=== PATIENT | male | born 1930 | race Caucasian/White ===

== ENCOUNTER 2018-07-08 07:52 | Emergency (ER) | payer OTHER ==
--- NOTE | 2018-07-08 08:12 | ED.PDOC ---
History of Present Illness - General Chief Complaint: Trauma Stated Complaint: s/p fall Time Seen by Provider: 07/08/18 08:07 Source: patient, family Exam Limitations: physical impairment - Dementia - History of Present Illness Initial Comments: patient comes in today after fall. He states he was walking downstairs and just slipped and fell. He had no chest pain, shortness of breath or dizziness. He is not very stable on his feet and he states he just wasn't strong enough to grab himself when he started to slip. Patient did have a fall yesterday per his daughter and he is fallen about a week ago as well. Patient denies any loss of consciousness, vision change, or emesis. He has a little bit of pain on his telephone that he thinks is chronic and also on his head where he has a bump from landing today. Patient does have some dementia allergies able to pleasantly conversant with us he could not give his true medical history until his daughter came to help him. Patient is on Eloquis and has a history of pulmonary embolus. He has a history of diabetes and hypertension. Patient also recently had a perforated bowel approximately 2 months ago. At that time he decided to move here to be closer to his daughter. Patient is and lives with his at home. Occurred: just prior to arrival Severity: mild Pain Location: head, other - "tailbone" Method of Injury: fall Improving Factors: nothing Worsening Factors: nothing Loss of Consciousness: no loss of consciousness Associated Symptoms (Fall): denies symptoms Allergies/Adverse Reactions: Allergies Penicillins Allergy (Verified 07/08/18 08:05) Home Medications: Ambulatory Orders Apixaban [Eliquis] 5 mg PO BID 07/08/18 Atorvastatin Calcium [Lipitor] 10 mg PO BEDTIME 07/08/18 Docusate Sodium [Colace Cap] 100 mg PO BID 07/08/18 Donepezil Hydrochloride [Aricept] 10 mg PO BEDTIME 07/08/18 Levofloxacin [Levaquin] 750 mg PO KIM-OTH-DAY 07/08/18 Megestrol Acetate 10 ml PO DAILY 07/08/18 Metformin HCl 500 mg PO DAILY 07/08/18 Pantoprazole Sodium 40 mg PO DAILY 07/08/18 Review of Systems - Review of Systems Constitutional: States: no symptoms reported. Denies: chills, fever, weakness EENTM: States: no symptoms reported. Denies: eye pain, blurred vision, ear discharge, nose congestion Respiratory: States: no symptoms reported. Denies: cough, short of breath Cardiology: States: no symptoms reported. Denies: chest pain, palpitations Gastrointestinal/Abdominal: States: no symptoms reported. Denies: abdominal pain, diarrhea, nausea, vomiting Genitourinary: States: no symptoms reported Musculoskeletal: States: see HPI Neurological: States: no symptoms reported. Denies: headache, numbness, paresthesia Past Medical History (General) - Patient Medical History Hx Stroke: No Hx Dementia: Yes Hx Cardiac Disorders: Yes - Atrial fib Hx Congestive Heart Failure: No Hx Hypertension: Yes Hx Diabetes: Yes Hx Gastroesophageal Reflux: Yes Surgical History: appendectomy - Vaccination History Hx Influenza Vaccination: Yes - 06/16/18 Hx Pneumococcal Vaccination: Yes - Social History Hx Tobacco Use: No - Activities of Daily Living [facility]Assisted Living (if applicable):: [facility] Family Medical History - Family History Father Family History: Unknown Living Status: Physical Exam - Physical Exam General Appearance: Alert, Frail, No apparent distress Head Injury: other - 4 cm ecchymosis and hematoma on the right parietal area of his head no Acosta sign, or other ecchymosis. 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 Departure - Departure Clinical Impression: Hematoma of occipital surface of head Qualifiers: Encounter type: initial encounter Qualified Code(s): S00.83XA - Contusion of other part of head, initial encounter Disposition: Discharge to Home or Self Care Condition: Good Departure Forms: ED Discharge - Pt. Copy, Patient Portal Self Enrollment Instructions: DI for Trauma Diet: regular diet Home Medications: Ambulatory Orders Apixaban [Eliquis] 5 mg PO BID 07/08/18 Atorvastatin Calcium [Lipitor] 10 mg PO BEDTIME 07/08/18 Docusate Sodium [Colace Cap] 100 mg PO BID 07/08/18 Donepezil Hydrochloride [Aricept] 10 mg PO BEDTIME 07/08/18 Levofloxacin [Levaquin] 750 mg PO KIM-OTH-DAY 07/08/18 Megestrol Acetate 10 ml PO DAILY 07/08/18 Metformin HCl 500 mg PO DAILY 07/08/18 Pantoprazole Sodium 40 mg PO DAILY 07/08/18 Additional Instructions: Return to ER for vision change, altered LOC, or emesis. Follow up with PCP in 3 -4 days to discuss repeated falls
[2018-07-08 08:32] VITALS: TEMP 96.7
--- NOTE | 2018-07-08 09:01 | RAD ---
PROCEDURE: Sacrum Coccyx Clinical History: fall pain to coccyx Indication: Same as above Comparison: None . Technique: Three views of the sacrum and coccyx were done. Findings: The sacrococcygeal joint is unremarkable. There is no diastases of the bilateral sacroiliac joints or the pubic symphysis. There is no evidence of acute fractures involving the sacrum or the coccyx. Note is made of degenerative changes in the evaluated lower lumbar spine, most pronounced at L5/S1 level. There is no visualization of any radiopaque foreign bodies in the soft tissues. Impression: Negative for acute bony trauma involving the sacrum or the coccyx Electronically signed by: Crow Henry MD 07/08/2018 9:00 AM CDT Workstation: [id number]
--- NOTE | 2018-07-08 09:03 | CT ---
PROCEDURE: Head HISTORY: fall on blood thinner Indication: Same as above Comparison: None Technique: CT of the head was done without intravenous contrast was done in the orthogonal planes. This exam was performed according to our departmental dose-optimization program, which includes automated exposure control, adjustment of the mA and/or KV according to the patient's size and/or use of iterative reconstruction technique. FINDINGS: There is no intracranial hemorrhage, midline shift mass effect or acute focal infarct. There is prominence of the sylvian fissures and the cortical sulci reflecting age related volume loss. There is periventricular and deep white matter low attenuation, most likely related to small vessel white matter ischemic disease. A tiny old lacunar infarct is seen in the right basal ganglia Intracranial atherosclerotic vascular wall calcifications are seen. If clinical concern exists regarding an acute ischemic/vascular pathology being responsible for patient's symptomatology, an MRI of the brain is more sensitive than the current study, in ruling out such a possibility. There is good morris/white matter differentiation. The ventricular system is normal. The mastoid air cells are unremarkable . The paranasal sinuses are unremarkable . There is no visualization of acute fractures involving the calvarium or the skull base. IMPRESSION: There is no acute intracranial abnormality. Age related and chronic involutional changes are seen. Electronically signed by: Crow Henry MD 07/08/2018 9:02 AM CDT Workstation: [id number]
[2018-07-08 09:06] VITALS: BP 114/76; O2SAT 98
== END 2018-07-08 09:47 ==
LOC: ER 07:52
DX: S00.83XA Contusion of other part of head, initial encounter (principal); F03.90 Unspecified dementia, unspecified severity, without behavioral disturbance, psychotic disturbance, mood disturbance, and anxiety; M54.5 Low back pain; E11.9 Type 2 diabetes mellitus without complications; I48.91 Unspecified atrial fibrillation; I10 Essential (primary) hypertension; K21.9 Gastro-esophageal reflux disease without esophagitis; W10.9XXA Fall (on) (from) unspecified stairs and steps, initial encounter; Z79.01 Long term (current) use of anticoagulants; Z79.899 Other long term (current) drug therapy; Z86.711 Personal history of pulmonary embolism; Z88.0 Allergy status to penicillin; Y92.129 Unspecified place in nursing home as the place of occurrence of the external cause

== ENCOUNTER 2018-12-02 21:30 | Emergency (ER) | payer OTHER ==
[2018-12-02 21:52] VITALS: BP 153/85; TEMP 98.5; O2SAT 95
--- NOTE | 2018-12-02 21:54 | ED.PDOC ---
History of Present Illness - General Chief Complaint: Skin/Abrasion/Tear Stated Complaint: abrasion/laceration to top right mouth Time Seen by Provider: 12/02/18 21:50 Source: patient, family, EMS Exam Limitations: clinical condition - Has Alzheimers Dementia - History of Present Illness Initial Comments: Jonny Garcia 88 y/o male [place] home resident at [facility] brought by EMS with gum laceration after a fall yesterday stated patient landed on his chin.Denies LOC,remembers falling,no blurry vision.Family stated that he had been eating solid foods since incident w/o complaining of pain on chewing.Denies any other injuries from incident NO headache , neck,chest,back or hip or leg pains from incident Occurred: yesterday Severity: moderate Pain Location: mouth Method of Injury: fall Improving Factors: nothing Worsening Factors: nothing Loss of Consciousness: no loss of consciousness Associated Symptoms (Fall): other - mouth pain Allergies/Adverse Reactions: Allergies Penicillins Allergy (Verified 12/02/18 21:52) Home Medications: Ambulatory Orders Apixaban [Eliquis] 5 mg PO BID 07/08/18 Atorvastatin Calcium [Lipitor] 10 mg PO BEDTIME 07/08/18 Docusate Sodium [Colace Cap] 100 mg PO BID 07/08/18 Donepezil Hydrochloride [Aricept] 10 mg PO BEDTIME 07/08/18 Levofloxacin [Levaquin] 750 mg PO KIM-OTH-DAY 07/08/18 Megestrol Acetate 10 ml PO DAILY 07/08/18 Metformin HCl 500 mg PO DAILY 07/08/18 Pantoprazole Sodium 40 mg PO DAILY 07/08/18 Clindamycin HCl 150 mg PO TID 7 Days #21 cap 12/02/18 Review of Systems - Review of Systems EENTM: States: see HPI, mouth pain Unable to Obtain Due To: dementia Past Medical History (General) - Patient Medical History Hx Stroke: No Hx Dementia: Yes Hx Cardiac Disorders: Yes - Atrial fib Hx Congestive Heart Failure: No Hx Hypertension: Yes Hx Diabetes: Yes Hx Gastroesophageal Reflux: Yes Surgical History: other - both knees - Vaccination History Hx Influenza Vaccination: Yes - 06/16/18 Hx Pneumococcal Vaccination: Yes - Social History Hx Tobacco Use: No Family Medical History - Family History Father Family History: Unknown Living Status: Physical Exam - Physical Exam General Appearance: Alert, Comfortable, No apparent distress Head Injury: no evidence of injury Eye Exam: bilateral normal ENT Exam: hearing grossly normal, other - non bleeding gum laceration upper portion right side Neck Exam: full range of motion, normal alignment, normal inspection Cardiovascular/Respiratory: normal peripheral pulses, no JVD, normal breath sounds, irregularly irregular Gastrointestinal/Abdominal: normal bowel sounds, non tender, soft Back Exam: no vertebral tenderness Extremity Exam: non-tender, no pedal edema Skin Exam: normal color, warm/dry - Mary Coma Score Best Eye Response ([place]): (4) open spontaneously Best Verbal Response ([place]): (5) oriented - to person,place-has Alzheimers Dementia Best Motor Response ([place]): (6) obeys commands Mary Total: 15 Progress - Progress Progress: 12/02/18 22:00 Vital Signs - 8 hr 12/02/18 21:30 Temperature 98.5 F Pulse Rate [ 68 monitor] Respiratory 16 Rate Blood Pressure 153/85 [Left Arm] O2 Sat by Pulse 95 Oximetry Departure - Departure Clinical Impression: Laceration of upper gingiva without complication Qualifiers: Encounter type: initial encounter Qualified Code(s): S01.512A - Laceration without foreign body of oral cavity, initial encounter Time of Disposition: 22:03 Disposition: Discharge to SNF Condition: Fair Departure Forms: ED Discharge - Pt. Copy, Patient Portal Self Enrollment Diet: other - SOFT DIET FOR ONE WEEK Referrals: LASHAE FARLEY [Primary Care Provider] - 1-2 Weeks Prescriptions: Clindamycin HCl 150 mg PO TID 7 Days #21 cap Home Medications: Ambulatory Orders Apixaban [Eliquis] 5 mg PO BID 07/08/18 Atorvastatin Calcium [Lipitor] 10 mg PO BEDTIME 07/08/18 Docusate Sodium [Colace Cap] 100 mg PO BID 07/08/18 Donepezil Hydrochloride [Aricept] 10 mg PO BEDTIME 07/08/18 Levofloxacin [Levaquin] 750 mg PO KIM-OTH-DAY 07/08/18 Megestrol Acetate 10 ml PO DAILY 07/08/18 Metformin HCl 500 mg PO DAILY 07/08/18 Pantoprazole Sodium 40 mg PO DAILY 07/08/18 Clindamycin HCl 150 mg PO TID 7 Days #21 cap 12/02/18 Additional Instructions: Continue with all home medications;No DENTURES FOR 2 WEEKS;Return to ER as needed
[2018-12-02] MEDS: CLINDAMYCIN HCL CAP 150 MG CAP PO ONE (22:04)
== END 2018-12-02 22:14 ==
LOC: ER 21:30
DX: S01.512A Laceration without foreign body of oral cavity, initial encounter (principal); F03.90 Unspecified dementia, unspecified severity, without behavioral disturbance, psychotic disturbance, mood disturbance, and anxiety; I48.91 Unspecified atrial fibrillation; I10 Essential (primary) hypertension; E11.9 Type 2 diabetes mellitus without complications; Z79.899 Other long term (current) drug therapy; Z79.84 Long term (current) use of oral hypoglycemic drugs; Z88.0 Allergy status to penicillin; W19.XXXA Unspecified fall, initial encounter; Y92.9 Unspecified place or not applicable

== ENCOUNTER 2020-07-03 16:00 | Observation (INO) | payer MEDICARE, OTHER ==
--- NOTE | 2020-07-03 16:12 | ED.PDOC ---
History of Present Illness - General Time Seen by Provider: 07/03/20 16:07 Source: patient, RN notes reviewed, Vital Signs reviewed, [facility] records, old records Exam Limitations: other - dementia - History of Present Illness Initial Comments: 89 yo M comes in from [facility] with cough, congestion. Tested positive covid. patient denies any chest pain, shortness of breath or fever. Patient hx of dementia. Allergies/Adverse Reactions: Allergies Penicillins Allergy (Verified 12/02/18 21:52) Home Medications: Ambulatory Orders Apixaban [Eliquis] 5 mg PO BID 07/08/18 Atorvastatin Calcium [Lipitor] 10 mg PO BEDTIME 07/08/18 Docusate Sodium [Colace Cap] 100 mg PO BID 07/08/18 Donepezil Hydrochloride [Aricept] 10 mg PO BEDTIME 07/08/18 Levofloxacin [Levaquin] 750 mg PO KIM-OTH-DAY 07/08/18 Megestrol Acetate 10 ml PO DAILY 07/08/18 Metformin HCl [Metformin Hydrochloride] 500 mg PO DAILY 07/08/18 Pantoprazole Sodium 40 mg PO DAILY 07/08/18 Clindamycin HCl 150 mg PO TID 7 Days #21 cap 12/02/18 Review of Systems - Review of Systems Constitutional: Denies: fever, malaise EENTM: Denies: throat pain Respiratory: States: cough. Denies: short of breath Cardiology: Denies: chest pain, palpitations Gastrointestinal/Abdominal: Denies: abdominal pain, diarrhea, nausea, vomiting Musculoskeletal: Denies: muscle pain Skin: Denies: rash Unable to Obtain Due To: dementia Past Medical History (General) - Patient Medical History Hx Seizures: No Hx Stroke: No Hx Dementia: Yes Hx Asthma: No Hx of COPD: No Hx Cardiac Disorders: Yes - Atrial fib Hx Congestive Heart Failure: No Hx Pacemaker: No Hx Hypertension: Yes Hx Thyroid Disease: No Hx Diabetes: Yes Hx Gastroesophageal Reflux: Yes Hx Renal Disease: No Hx Cancer: No Hx of HIV: No Hx Hepatitis C: No Hx MRSA: No - Vaccination History Hx Tetanus, Diphtheria Vaccination: - unknown Hx Influenza Vaccination: Yes - 06/16/18 Hx Pneumococcal Vaccination: Yes - Social History Hx Tobacco Use: No Family Medical History - Family History Father Family History: Unknown Living Status: Physical Exam - Physical Exam General Appearance: Alert, Comfortable, No apparent distress, Well Developed, Well Groomed, Well Hydrated, Well Nourished Eye Exam: bilateral normal ENT Exam: normal ENT inspection, hearing grossly normal, TMs normal Neck: non-tender, full range of motion, supple, normal inspection, trachea midline Respiratory: chest non-tender, lungs clear, normal breath sounds, no respiratory distress, no accessory muscle use, other - cough Cardiovascular/Chest: normal peripheral pulses, regular rate, rhythm, no edema, no gallop, no JVD, no murmur Gastrointestinal/Abdominal: normal bowel sounds, non tender, soft, no organomegaly, no pulsatile mass Extremity: normal range of motion, non-tender, normal inspection, no pedal edema, no calf tenderness, normal capillary refill 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 per hospitalist request for covid admission. COVID test was not adequate, and so it was repeated. 07/03/20 21:27 Patient sundowning. Given 5 mg PO haldol x 2. Patient transferred to the floor instable condition. 07/03/20 21:28 - Results/Orders Results/Orders: 07/03/20 16:07 Isolation:Airborne ONCE 07/03/20 16:15 Pulse Ox, Continuous Monitoring STAT 07/03/20 17:20 RESPIRATORY PANEL 2 Stat 07/04/20 16:15 Pulse Ox, Continuous Monitoring STAT 07/05/20 16:15 Pulse Ox, Continuous Monitoring STAT Laboratory Results WBC 8.6 K/mm3 (4.8-10.8) 07/03/20 16:25 RBC 5.37 M/mm3 (4.70-6.10) 07/03/20 16:25 Hgb 15.5 gm/dL (14.0-18.0) 07/03/20 16:25 Hct 45.9 % (42.0-52.0) 07/03/20 16:25 MCV 85.4 fl (80.0-94.0) 07/03/20 16:25 MCH 28.9 pg (27.0-31.0) 07/03/20 16:25 MCHC 33.8 g/dL (33.0-37.0) 07/03/20 16:25 RDW 14.3 % (11.5-14.5) 07/03/20 16:25 Plt Count 203 K/mm3 (130-400) 07/03/20 16:25 MPV 8.7 fl (7.40-10.4) 07/03/20 16:25 Absolute Neuts (auto) 3.10 K/uL (1.8-6.8) 07/03/20 16:25 Absolute Lymphs (auto) 4.10 K/uL (1.0-3.4) H 07/03/20 16:25 Absolute Monos (auto) 1.10 K/uL (0.2-0.8) H 07/03/20 16:25 Absolute Eos (auto) 0.20 K/uL (0.0-0.4) 07/03/20 16:25 Absolute Basos (auto) 0.10 K/uL (0.0-0.1) 07/03/20 16:25 Neutrophils % 35.7 % (42.0-78.0) L 07/03/20 16:25 Lymphocytes % 47.9 % (20.0-50.0) 07/03/20 16:25 Monocytes % 13.3 % (2.0-9.0) H 07/03/20 16:25 Eosinophils % 2.1 % (1.0-5.0) 07/03/20 16:25 Basophils % 1.0 % (0.0-2.0) 07/03/20 16:25 PTT (SP) 32.2 SECONDS (21.8-31.6) H 07/03/20 16:25 D-Dimer, Quantitative < 131.0 ng/ml (131-400) L 07/03/20 16:25 Sodium 136 mmol/L (135-145) 07/03/20 16:25 Potassium 3.7 mmol/L (3.6-5.0) 07/03/20 16:25 Chloride 98 mmol/L (101-111) L 07/03/20 16:25 Carbon Dioxide 25 mmol/L (21-31) 07/03/20 16:25 Anion Gap 16.7 (12-18) 07/03/20 16:25 BUN 25 mg/dL (7-18) H 07/03/20 16:25 Creatinine 1.28 mg/dL (0.6-1.3) 07/03/20 16:25 BUN/Creatinine Ratio 19.5 (10-20) 07/03/20 16:25 Random Glucose 170 mg/dL (70-105) H 07/03/20 16:25 Serum Osmolality 280.3 mOsm/L (275-295) 07/03/20 16:25 Calcium 8.2 mg/dL (8.4-10.2) L 07/03/20 16:25 Magnesium 2.0 mg/dL (1.8-2.5) 07/03/20 16:25 Total Bilirubin 0.6 mg/dL (0.2-1.0) 07/03/20 16:25 AST 27 IU/L (10-42) 07/03/20 16:25 ALT 17 IU/L (10-60) 07/03/20 16:25 Alkaline Phosphatase 81 IU/L (42-121) 07/03/20 16:25 LD Total 126 IU/L (91-180) 07/03/20 16:25 Creatine Kinase 91 IU/L (38-174) 07/03/20 16:25 Troponin I < 0.02 ng/mL (0.01-0.05) 07/03/20 16:25 C-Reactive Protein 1.4 mg/dL (0-1.0) H 07/03/20 16:25 B-Natriuretic Peptide 22.8 pg/ml (0-100) 07/03/20 16:25 Serum Total Protein 7.0 gm/dL (6.4-8.2) 07/03/20 16:25 Albumin 4.2 g/dl (3.2-5.5) 07/03/20 16:25 Globulin 2.8 gm/dL (2.3-3.5) 07/03/20 16:25 Albumin/Globulin Ratio 1.5 (1.1-1.9) 07/03/20 16:25 - EKG/XRAY/CT EKG: Sinus Comments: HR 77, QRS 112, 1st degree AV block, LAF, no acute ischemia. XRAY: chest - no acute cardiopulmonary pathology Departure - Departure Clinical Impression: COVID-19, Hypoxia, Sundowning Time of Disposition: 17:02 Disposition: Admit Patient Condition: Fair Diet: resume usual diet Home Medications: Ambulatory Orders Apixaban [Eliquis] 5 mg PO BID 07/08/18 Atorvastatin Calcium [Lipitor] 10 mg PO BEDTIME 07/08/18 Docusate Sodium [Colace Cap] 100 mg PO BID 07/08/18 Donepezil Hydrochloride [Aricept] 10 mg PO BEDTIME 07/08/18 Levofloxacin [Levaquin] 750 mg PO KIM-OTH-DAY 07/08/18 Megestrol Acetate 10 ml PO DAILY 07/08/18 Metformin HCl [Metformin Hydrochloride] 500 mg PO DAILY 07/08/18 Pantoprazole Sodium 40 mg PO DAILY 07/08/18 Clindamycin HCl 150 mg PO TID 7 Days #21 cap 12/02/18 Decision To Admit - Decistion To Admit Decision to Admit Date: 07/03/20 Decision to Admit Time: 17:11
--- NOTE | 2020-07-03 16:37 | RAD ---
EXAM DESCRIPTION: Chest,1 View CLINICAL HISTORY: covid COMPARISON: None Available. TECHNIQUE: One view radiograph of the chest FINDINGS: Cardiac silhouette shows normal heart size. Pulmonary vascularity is within normal limits. Lungs show no confluent infiltrates. No pleural effusion. No pneumothorax. No acute osseous abnormality. IMPRESSION: No acute cardiopulmonary process. Electronically signed by: Earl Costa MD 07/03/2020 4:35 PM CDT
[2020-07-03] MEDS ORDERED: DEXAMETHASONE INJ 4 MG/ML VIAL IV ONE (17:37)
--- NOTE | 2020-07-03 19:27 | HP ---
SUPERVISING PHYSICIAN: Prasad Carver MD CHIEF COMPLAINT: Cough, congestion, Covid positive. HISTORY OF PRESENT ILLNESS: Mr. Garcia is an 89 year-old male patient who resides at [facility]. He was sent over from [facility] for evaluation after he tested positive for Covid-19 because he is having a cough and congestion. The patient has a history of dementia and is a very poor historian. At time of admission, there is no actual medical record available to review. Therefore, his history is obtained from the Emergency Room records. His lab showed he had a normal white count at 8,600, coagulation studies show a normal D-dimer of less than 131 and his chemistries reveal normal electrolytes. Creatinine 1.28. C-reactive protein is a little elevated at 1.4, troponin less than 0.02. Liver functions all within normal limits. Microbiology shows Covid was positive. RADIOLOGY: Chest x-ray per radiology interpretation showed no acute cardiopulmonary process. Given his advanced age, he is going to be placed in observation until arrangements can be made for placement, possibly at acute care facility per [facility] as the do not have the capability to take of Covid patients at this time. He was in stable condition at time of being placed in observation. PAST MEDICAL HISTORY: 1. Dementia. 2. Atrial fibrillation on Eliquis. 3. Hypertension. 4. Gastroesophageal reflux disease. 5. Diabetes mellitus type 2. PAST SURGICAL HISTORY: Unknown. CURRENT MEDICATIONS: Awaiting updated list from [facility]. ALLERGIES: Penicillins. FAMILY HISTORY: Unknown. SOCIAL HISTORY: The patient resides at [facility]. No history of tobacco abuse or smoking. REVIEW OF SYSTEMS: Unable to obtain due to patient's dementia. PHYSICAL EXAMINATION: VITAL SIGNS: Temperature 97.7, pulse 66, blood pressure 144/67, respirations 20 to 24, oxygen saturation 94% on 2 liter nasal cannula. GENERAL: The patient looks to be comfortable, well-developed, well-nourished, does not look to be in any distress. HEENT: Tympanic membranes are clear bilaterally. Oropharynx is pink, moist, without any lesions. NECK: Supple, nontender, full range of motion, no jugular venous distention. CHEST: Lung sounds were clear, somewhat diminished towards the bases. He does have a dry cough. No wheezing or rhonchi are noted. CARDIOVASCULAR: Regular rate and rhythm without appreciable murmurs, rubs, or gallops. ABDOMEN: Soft, nontender, positive bowel sounds. EXTREMITIES: Without cyanosis, clubbing, or edema. NEUROLOGIC: Cranial nerves II through XII are grossly intact, no obvious deficits. He is alert and oriented to himself. He understands he is at the hospital and knows that there is currently an election occurring. He does not know his own past medical history. SKIN: Warm, pink and dry. LABORATORY: White count 8,600 with no left shift. Coagulation studies showed normal D-dimer at 131. Chemistries showed normal electrolytes. BUN 25, creatinine 1.28. Liver functions within normal limits. Troponin less than 0.02. C-reactive protein 1.4. Urinalysis pending. MICROBIOLOGY: Respiratory panel is positive for Covid, negative for other targets including bacterial, viral, negative for flu. ASSESSMENT: 1. COVID pneumonitis 2. Dementia. 3. Atrial fibrillation on Eliquis. 4. Hypertension. 5. Gastroesophageal reflux disease. 6. Diabetes mellitus type 2. PLAN: The patient is going to be placed in observation for Covid pneumonitis. Given his advanced age of 89 and underlying history of atrial fibrillation and diabetes, I am going to go ahead and treat him fairly aggressive initially while we follow his labs and per protocol. I am not sure of his disposition obviously due to the fact that his current [facility] at [facility] does not have the capability to take Covid patients and will have to find a facility and will pursue to see if we get the patient transferred. Until then, we will continue to treat fairly aggressive with Remdesivir, Rocephin, azithromycin, Decadron, sliding scale, Align, Protonix and albuterol treatments as needed and follow his labs. I anticipate his length of stay to be at least 1 to 2 days pending his clinical presentation and also disposition. Until we can transition patient back to outpatient management, we will continue to monitor and treat as needed #[id number] [id number]
[2020-07-03] MEDS ORDERED: HALOPERIDOL TAB 1 MG TAB PO ONE ×2 (20:08→20:11)
[2020-07-03] MEDS ORDERED: HALOPERIDOL LACTATE INJ 5 MG/ML VIAL IM ONE (21:04)
[2020-07-03] MEDS ORDERED: SODIUM CHLORIDE 0.9% (FLUSH) 10 ML SYG IV PRN (22:21)
[2020-07-03] MEDS ORDERED: ONDANSETRON INJ 4 MG/2 ML VIAL IV PRN (22:21)
[2020-07-03] MEDS ORDERED: ACETAMINOPHEN 325 MG TAB PO PRN (22:21)
[2020-07-03] MEDS ORDERED: ALBUTEROL INHALER 64 PUFF/8GM INH PRN (22:25)
[2020-07-03] MEDS ORDERED: AZITHROMYCIN IV 500 MG in SODIUM CHLORIDE 0.9% 250ML 250 ML IVPB SCH (22:30)
[2020-07-03] MEDS ORDERED: cefTRIAXone SODIUM 1 GM in SODIUM CHL 0.9% 50ML MIN-BAG+ 50 ML IVPB SCH (22:30)
[2020-07-03] MEDS ORDERED: IV SET AND CAP CHANGE INJ INJ SCH (22:30)
[2020-07-03] MEDS ORDERED: SODIUM CHLORIDE 0.9% 250ML 250 ML ONE (23:06)
[2020-07-03] MEDS ORDERED: AZITHROMYCIN IV 500 MG VIAL IVPB ONE (23:06)
[2020-07-03] MEDS ORDERED: cefTRIAXone SODIUM 1 GM VIAL ONE (23:06)
[2020-07-03] MEDS ORDERED: SODIUM CHL 0.9% 50ML MIN-BAG+ 50 ML IVPB ONE (23:06)
[2020-07-04] MEDS ORDERED: DEXTROSE 50% 25 GM/50 ML SYG IV PRN (01:24)
[2020-07-04] MEDS ORDERED: GLUCAGON INJ 1 MG VIAL SUBCU PRN (01:24)
[2020-07-04] MEDS ORDERED: PANTOPRAZOLE SODIUM IV 40 MG VIAL IV SCH (06:30)
[2020-07-04] MEDS ORDERED: LEVOTHYROXINE SODIUM 0.1 MG TAB PO SCH (07:00)
[2020-07-04] MEDS: INSULIN LISPRO 100 UNITS/ML PEN SUBCU SCH ×3 (08:41→17:00)
[2020-07-04] MEDS ORDERED: BIFIDOBACTERIUM INFANTIS 4 MG CAP PO SCH (09:00)
[2020-07-04] MEDS ORDERED: DOCUSATE SODIUM 100 MG CAP PO SCH (09:00)
[2020-07-04] MEDS ORDERED: ALPRAZolam 0.25 MG TAB PO SCH (09:00)
[2020-07-04] MEDS ORDERED: FLUoxetine HCL 20 MG CAP PO SCH (09:00)
[2020-07-04] MEDS ORDERED: DEXAMETHASONE INJ 10 MG/ML VIAL IV SCH (09:00)
[2020-07-04] MEDS ORDERED: FUROSEMIDE 40 MG TAB PO SCH (09:00)
[2020-07-04] MEDS ORDERED: REMDESIVIR 100 MG in SODIUM CHLORIDE 0.9% 250ML 250 ML IVPB SCH (09:00)
[2020-07-04] MEDS ORDERED: REMDESIVIR 200 MG in SODIUM CHLORIDE 0.9% 250ML 250 ML IVPB ONE (09:00)
[2020-07-04] MEDS ORDERED: MEMANTINE 10 MG TAB PO SCH (09:00)
[2020-07-04] MEDS: ALBUTEROL INHALER 64 PUFF/8GM INH SCH ×4 (09:00→22:05)
[2020-07-04] MEDS ORDERED: FLUTICASONE PROP 0.05% NASAL 16 GM BTTL BNAS SCH (09:00)
[2020-07-04] MEDS ORDERED: CETIRIZINE HCL 10 MG TAB PO SCH (09:00)
[2020-07-04] MEDS ORDERED: POTASSIUM CHLORIDE 10 MEQ TAB PO SCH (09:00)
[2020-07-04] MEDS ORDERED: metFORMIN HCL 500 MG TAB PO SCH (09:00)
[2020-07-04] MEDS ORDERED: APIXABAN 5 MG TAB PO SCH (09:00)
--- NOTE | 2020-07-04 14:20 | CT ---
EXAM DESCRIPTION: Chest w/o Contrast : Computed Tomography. CLINICAL HISTORY: 89 years Male COVID COMPARISON: Chest x-ray July 03. TECHNIQUE: Spiral-axial scans at 5 mm intervals through the lungs and thorax without IV contrast. 5 x 5 mm lung algorithm axial reconstructions. Coronal and sagittal 2.0 Mm reconstructions. No adverse reactions. Total Exam DLP: 747 mGy-cm. This exam was performed according to our departmental dose-optimization program which includes automated exposure control, adjustment of the mA and/or kV according to patient size and/or use of iterative reconstruction technique; to reduce radiation dose to as low as reasonably achievable (ALARA). Nodule measurements under 10 mm are given as mean value of 3 axes diameters. FINDINGS: Lungs and large airways: Pulmonary infiltrate versus scarring versus atelectasis right lower lobe with volume loss. Pleural parenchymal scarring left lower lobe. Calcified nodule right middle lobe abutting the hilum. Second calcified nodule medial superior segment right lower lung. Third calcified nodule in the medial lingula No infiltrates in the right upper lobe and middle lobe or left lung. Pleural-parenchymal scarring inferior lingula. No abnormal nodules and no mass. No new infiltrate. Pleural spaces: Minimal thickening bilaterally but no acute process. Mediastinum and Isabella: Evaluation limited due to lack of IV contrast small soft tissue nodules with no dominant soft tissue mass. Great vessels and Heart: Evaluation limited due to lack of IV contrast. Coronary artery calcifications. Aortic and brachiocephalic vessels atherosclerotic calcification. Soft tissues of neck base, axillae, and chest wall: Evaluation limited due to lack of IV contrast. Normal size nodes and no dominant mass. Upper abdomen: No free fluid or free air. Stomach distended by fluid and gas. Small calcifications in the spleen. Partial visualization of the adrenal glands and gallbladder. Osseous structures: Advanced arthrosis right glenohumeral joint with minimal arthrosis left glenohumeral joint. Sternoclavicular arthrosis. Thoracic spondylosis. IMPRESSION: 1. In this patient with history of COVID 19 positive testing, densities in the right lower lobe base are most likely scarring atelectasis or residual pneumonia. Remaining bilateral lung lobes demonstrate appearance not consistent with COVID 19 pneumonia, Electronically signed by: Payam Leon MD 07/04/2020 2:19 PM CDT
--- NOTE | 2020-07-04 15:20 | DS ---
SUPERVISING PHYSICIAN: Zhang Carver MD DISCHARGE DIAGNOSIS: 1. COVID pneumonitis. 2. Dementia. 3. Atrial fibrillation on Eliquis. 4. Hypertension. 5. Gastroesophageal reflux disease. 6. Diabetes mellitus, type 2. HISTORY OF PRESENT ILLNESS: This is an 89-year-old male patient who resides at [facility]. He was sent to the hospital after he tested positive for COVID-19 due to a cough and congestion. The patient has a history of dementia and is a very poor historian. At time of admission, there was no medical record, but history was obtained from the Emergency Room records. His lab showed he had a normal white count at 8,600 with a normal D-dimer of less than 131. His chemistries revealed normal electrolytes. Creatinine 1.28. C- reactive protein is slightly elevated at 1.4, troponin less than 0.02. Liver functions all within normal limits. He was COVID positive. HOSPITAL COURSE: He was placed in observation for COVID pneumonitis given his advanced age and underlying history of atrial fibrillation and diabetes. He was given aggressive treatment initially and his labs were followed. The facility that he resides at does not have a COVID Unit at this time. His vital signs remained stable. He required no oxygen. His labs were stable. [facility] has now opened a COVID-19 isolation bahena and he will be discharged back to [facility] in stable condition. LABORATORY: His CBC remained unremarkable and mostly within normal limits. Repeat D-dimer was less than 131. Electrolytes were within normal limits. BUN 23, creatinine 1.19. Creatinine kinase was slightly elevated at 401. Liver enzymes were within normal limits. Ferritin 48.7, troponin 0.02. RADIOLOGY: Chest x-ray showed no acute cardiopulmonary processes. Chest CT showed in this patient with a history of COVID-19 positive testing, densities in the right lower lobe base that maybe scarring or residual pneumonia. Remaining bilateral lung lobes demonstrate appearance not consistent with COVID-19 pneumonia. DISCHARGE PLAN: The patient will be discharged to [facility] in fair condition. He is to resume his previous diet and increase his activity as tolerated. He is to followup with Dr. Daniel Lyon within the next 1 to 2 weeks. He is to resume his previous medications. In addition to his previous medications, he is also to have 8 days of cefdinir, 9 days of Decadron and 4 days of azithromycin. He is to return to the hospital or followup with Dr. Lyon for any problems or complications. DISCHARGE MEDICATIONS: 1. Donepezil. 2. Atorvastatin. 3. Eliquis. 4. Metformin. 5. Docusate sodium. 6. Famotidine. 7. Aspirin. 8. Potassium chloride. 9. Memantine. 10. Magnesium hydroxide. 11. Levothyroxine. 12. Guaifenesin. 13. Furosemide. 14. Fluticasone nasal spray. 15. Guaifenesin DM. 16. Acetaminophen with codeine. 17. Xanax. 18. Sennosides. 19. Acetaminophen. 20. Fluoxetine. 21. Promethazine. 22. Cetirizine. 23. Align. 24. Cefdinir. 25. Dexamethasone. 26. Albuterol inhaler. 27. Azithromycin. #[id number] [facility]
[2020-07-04 16:32] VITALS: BP 158/74; TEMP 97.3; O2SAT 96
[2020-07-04] MEDS ORDERED: ATORVASTATIN 10 MG TAB PO SCH (21:00)
[2020-07-04] MEDS ORDERED: DONEPEZIL HCL 5 MG TAB PO SCH (21:00)
[2020-07-05] MEDS ORDERED: REMDESIVIR 100 MG in SODIUM CHLORIDE 0.9% 250ML 250 ML IVPB SCH (09:00)
== END 2020-07-04 18:45 ==
LOC: ER 16:00 → MS 19:26
PROVIDERS: ADMIT Nurse Practitioner Family; ATTEND Nurse Practitioner Acute Care
DX: U07.1 COVID-19 (principal); J12.89 Other viral pneumonia; R09.02 Hypoxemia; F03.90 Unspecified dementia, unspecified severity, without behavioral disturbance, psychotic disturbance, mood disturbance, and anxiety; F05 Delirium due to known physiological condition; I48.91 Unspecified atrial fibrillation; I10 Essential (primary) hypertension; K21.9 Gastro-esophageal reflux disease without esophagitis; E11.9 Type 2 diabetes mellitus without complications; I44.0 Atrioventricular block, first degree; I44.4 Left anterior fascicular block; Z79.01 Long term (current) use of anticoagulants; Z79.84 Long term (current) use of oral hypoglycemic drugs; Z79.899 Other long term (current) drug therapy
CPT/HCPCS: 96366; 96365; 96375 ×2; 96376; 96372 ×2; J0696; J1100 ×2; J1630; J7050 ×3; J0456; J1815; 85379 ×2; 80053 ×2; 82948 ×3; 36415 ×2; 85384; 86140 ×2; 85025 ×2; 82550 ×2; 82728; 83615 ×2; 83735 ×2; 85730 ×2; 84484 ×2; 83880 ×2; 71045; 71250; 94760 ×2; 94664; 94640 ×2; 94762; 99285; 93005; G0378; 87581; 87486; 87633; 87635 ×2

== ENCOUNTER → 2020-07-10 | Outpatient (CLI) | payer MEDICARE, MEDICAID | LOC: GT 20:51 | PROVIDERS: ATTEND Family Medicine | DX: B34.2 Coronavirus infection, unspecified (principal); R71.8 Other abnormality of red blood cells; R09.02 Hypoxemia ==